=== PATIENT | female | born 1985 | race Caucasian/White ===

== ENCOUNTER 2020-11-30 09:55 | Emergency (ER) | payer MEDICAID ==
[~2020-11-30 09:55] MED LIST: CALC1TAB17 PO; FERR256T PO; FOLI0.4T6 PO; PREN1COM12 PO
[2020-11-30] MEDS ORDERED: ACETAMINOPHEN 325MG TABLET PO ONE (10:15)
[2020-11-30] MEDS ORDERED: IBUPROFEN 800MG TABLET PO ONE (10:45)
[2020-11-30] MEDS ORDERED: IBUP-2029 MT (10:48)
[2020-11-30] MEDS ORDERED: AMOX-494 MT (10:48)
[2020-11-30 10:55] VITALS: BP 130/80
== END 2020-11-30 10:56 | disposition home or self-care (01) ==
LOC: ER 10:10
DX: H66.91 Otitis media, unspecified, right ear (principal); J45.909 Unspecified asthma, uncomplicated; Z98.890 Other specified postprocedural states; Z79.899 Other long term (current) drug therapy
CPT/HCPCS: 99283